=== PATIENT | female | born 1990 | race Asian ===

== ENCOUNTER 2018-09-17 05:20 | Emergency (ER) | payer BC, OTHER ==
[~2018-09-17] VITALS: Ht 152.4 cm; Wt 49.8 kg
[~2018-09-17 05:20] MED LIST: FERR325C PO; Ibuprofen PO; PREN-39 PO
[2018-09-17 05:26] VITALS: Ht 152.4 cm; Wt 49.8 kg
--- NOTE | 2018-09-17 06:02 | ERD ---
ER Documentation Chief Complaint Chief Complaint right abdominal pain radiating to right leg since 0230am HPI 28-year-old female, presents to the emergency department, complaining of acute onset of right lower quadrant abdominal pain, radiating to the right lower extremity, the pain started approximately 3 hours prior to arrival. Otherwise, the patient denies fever, no chills, no diarrhea or constipation, no urinary symptoms. ROS All systems reviewed and are negative except as per history of present illness. Medications Home Meds Active Scripts Ibuprofen* (Motrin*) 600 Mg Tab, 600 MG PO Q6H PRN for PAIN AND OR ELEVATED TEMP, #30 TAB Prov:OMKAR RAMSAY MD 09/17/18 [Ibuprofen] 200 MG TAB No Conflict Check, 200 MG PO Q6H PRN for PAIN OR TEMP ABOVE 38C, TAB Prov:ALICIA ABDALLA 08/18/14 Reported Medications Vits W-Ca,Fe,Fa(<1MG) ( Vitamins) 1 Tab Tablet, 1 TAB PO DAILY 08/15/14 Ferrous Sulfate (Iron) 325 Mg Capsr, 325 MG PO DAILY, #1 08/15/14 Allergies Allergies: Coded Allergies: No Known Drug Allergies (Verified Allergy, Unknown, 09/17/18) Uncoded Allergies: NKDA (Allergy, Unknown, 08/15/14) PMhx/Soc Medical and Surgical Hx: pt denies Medical Hx, pt denies Surgical Hx Hx Alcohol Use: No Hx Substance Use: No Hx Tobacco Use: No Smoking Status: Never smoker FmHx Family History: No diabetes, No coronary disease Physical Exam Vitals Vital Signs Date Temp Pulse Resp B/P (MAP) Pulse Ox O2 O2 Flow FiO2 Time Delivery Rate 09/17/18 98.2 78 18 123/79 98 Room Air 08:14 (94) 09/17/18 99.0 86 18 115/79 98 05:26 (91) Physical Exam Const: Mild distress due to pain Head: Atraumatic Eyes: Normal Conjunctiva ENT: Normal External Ears, Nose and Mouth. Neck: Full range of motion. No meningismus. Resp: Clear to auscultation bilaterally Cardio: Regular rate and rhythm, no murmurs Abd: Soft, tender to deep palpation in the right lower quadrant, questionable peritoneal signs, non distended. Normal bowel sounds Skin: No petechiae or rashes Back: No midline or flank tenderness Ext: No cyanosis, or edema Neur: Awake and alert Psych: Normal Mood and Affect Result Diagram: 09/17/18 0637 09/17/18 0637 Results 24 hrs Laboratory Tests Test 09/17/18 06:37 White Blood Count 7.9 10^3/ul Red Blood Count 5.01 10^6/ul Hemoglobin 14.1 g/dl Hematocrit 42.4 % Mean Corpuscular Volume 84.6 fl Mean Corpuscular Hemoglobin 28.1 pg Mean Corpuscular Hemoglobin Concent 33.3 g/dl Red Cell Distribution Width 12.4 % Platelet Count 334 10^3/UL Mean Platelet Volume 9.6 fl Immature Granulocytes % 0.300 % Neutrophils % 81.6 % Lymphocytes % 14.0 % Monocytes % 3.4 % Eosinophils % 0.3 % Basophils % 0.4 % Nucleated Red Blood Cells % 0.0 /100WBC Immature Granulocytes # 0.020 10^3/ul Neutrophils # 6.5 10^3/ul Lymphocytes # 1.1 10^3/ul Monocytes # 0.3 10^3/ul Eosinophils # 0.0 10^3/ul Basophils # 0.0 10^3/ul Nucleated Red Blood Cells # 0.0 10^3/ul Urine Color RED Urine Clarity SLIGHTLY CLOUDY Urine pH 7.0 Urine Specific [place] 1.005 Urine Ketones NEGATIVE mg/dL Urine Nitrite NEGATIVE mg/dL Urine Bilirubin NEGATIVE mg/dL Urine Urobilinogen NEGATIVE mg/dL Urine Leukocyte Esterase NEGATIVE Ol[place]/ul Urine Microscopic RBC 3 /HPF Urine Microscopic WBC 2 /HPF Urine Squamous Epithelial Cells FEW /HPF Urine Bacteria FEW /HPF Urine Hemoglobin NEGATIVE mg/dL Urine Glucose NEGATIVE mg/dL Urine Total Protein NEGATIVE mg/dl Sodium Level 142 mmol/L Potassium Level 3.9 mmol/L Chloride Level 104 mmol/L Carbon Dioxide Level 24 mmol/L Anion Gap 14 Blood Urea Nitrogen 9 mg/dl Creatinine 0.45 mg/dl Est Glomerular Filtrat Rate mL/min > 60 mL/min Glucose Level 116 mg/dl Calcium Level 10.7 mg/dl Total Bilirubin 0.4 mg/dl Direct Bilirubin 0.00 mg/dl Indirect Bilirubin 0.4 mg/dl Aspartate Amino Transf (AST/SGOT) 20 IU/L Alanine Aminotransferase (ALT/SGPT) 10 IU/L Alkaline Phosphatase 64 IU/L Total Protein 9.1 g/dl Albumin 4.9 g/dl Globulin 4.20 g/dl Albumin/Globulin Ratio 1.16 Lipase 202 U/L Serum HCG, Qualitative NEGATIVE Current Medications Medications Dose Sig/Lizbet Start Time Status Last (Trade) Ordered Route PRN Stop Time Admin Dose Reason Admin Sodium 500 ml @ Q1H STAT 09/17/18 DC Chloride 500 mls/hr IV 06:09 09/17/18 06:35 Patient: SHAYLEE ESPINOZA : 1990 Age: 28 Sex: F MR #: [id number] DOS: 09/17/18 0609 Ordering MD: OMKAR RAMSAY MD Location: [facility] Room/Bed: PROCEDURE: CT Abdomen and Pelvis Without Intravenous Contrast CLINICAL INDICATION: RLQ Abdominal Pain TECHNIQUE: Axial computed tomography images of the abdomen and pelvis without intravenous contrast. Sagittal and coronal reformatted images were created and reviewed. CTDIvol (mGy) = <5.45 mGy>; total DLP (mGy-cm) = <274.28 [address]Gy.cm>. This CT exam was performed using one or more of the following dose reduction techniques: automated exposure control, adjustment of the mA and/or kV according to patient size, and/or use of iterative reconstruction technique. DICOM images are available. COMPARISON: None FINDINGS: LUNG BASES: 3 mm left lower lobe lung nodule, incidental. ABDOMEN: LIVER: Slightly enlarged liver, 18.5 cm. This may predominately be due to a Cesar's lobe, however. No focal hepatic lesion is seen. GALLBLADDER AND BILE DUCTS: Unremarkable No calcified stones. No ductal dilation. PANCREAS: Unremarkable No ductal dilation. SPLEEN: Unremarkable No splenomegaly. ADRENALS: Unremarkable No mass. KIDNEYS AND URETERS: No hydronephrosis. No stones are seen in the kidneys, ureters, or urinary bladder. STOMACH AND BOWEL: Moderate stool burden. No evidence for small bowel obstruction, free air, or abscess. PELVIS: APPENDIX: Normal appendix. BLADDER: Unremarkable No stones. REPRODUCTIVE: Unremarkable. ABDOMEN and PELVIS: INTRAPERITONEAL SPACE: Unremarkable uterus. Possible bilateral ovarian follicles. There may be trace free fluid adjacent to the right ovary. BONES/JOINTS: No bony abnormality is seen. SOFT TISSUES: Unremarkable VASCULATURE: Unremarkable No abdominal aortic aneurysm. LYMPH NODES: Unremarkable No enlarged lymph nodes. OTHER FINDINGS: IMPRESSION: 1. Normal appendix. 2. Unremarkable uterus. Possible bilateral ovarian follicles. There may be trace free fluid adjacent to the right ovary. 3. Moderate stool burden. No evidence for small bowel obstruction, free air, or abscess. Procedures/MDM Vital signs stable. Differential diagnosis include but not limited to: UTI, colitis, gastroenteritis, kidney stones, irritable bowel syndrome, inflammatory bowel syndrome, malabsorption syndrome, cholelithiasis, food intolerance, medication side effect, pancreatitis, diverticulitis, bowel obstruction. Physical examination and clinical presentation consistent most likely with abdominal pain, no evidence of acute abdomen. During the ED course the patient remained stable, no new complaints. The patient refused IV fluids or pain medication in the emergency department. Results and clinical impression discussed with the patient who agrees with management. The patient is stable to be treated outpatient and will be discharged home; some side effects of prescribed medications (headache, rash, nausea, vomiting, diarrhea, drowsiness, habituation, bleeding, hypertension, interactions with other medications) were reviewed. The patient was informed that the evaluation in the emergency department has been done to rule out an acute emergency, therefore, chronic conditions like malignancy or other diseases have not been evaluated; therefore, the patient was instructed to follow up with the primary care provider in the next 48h. If symptoms persist, worsen or new symptoms develop, then patient should return to the ED immediately. Instructions explained and given directly by me to the patient with acknowledgment and demonstrated understanding. Disclaimer: Inadvertent spelling and grammatical errors are likely due to EHR/dictation software use and do not reflect on the overall quality of patient care. Also, please note that the electronic time recorded on this note does not necessarily reflect the actual time of the patient encounter. Departure Diagnosis: Primary Impression: Abdominal pain Condition: Stable Additional Instructions: Thank you very much for allowing us to participate in your care. Your health and safety is our top priority at [facility]. The evaluation in the emergency department has been done to rule out an acute emergency, therefore, chronic conditions like malignancy or other diseases have not been evaluated; therefore, you need to follow up with a primary care provider in the next 48h. If symptoms persist, worsen or new symptoms develop, then patient should return to the ED immediately. Call your primary care doctor TOMORROW for an appointment during the next 2-4 days and bring all the information provided. Have prescriptions filled and follow precisely the directions on the label. If the symptoms get worse and your provider is unavailable, return to the [facility] immediately. OMKAR RAMSAY MD Sep 17, 2018 06:02
[2018-09-17] MEDS ORDERED: SOD CHLORIDE 0.9% 500 ML IV STA (06:09)
[2018-09-17] MEDS ORDERED: IBUP-1542 PO (08:02)
[2018-09-17 08:14] VITALS: BP 123/79; PULSE 78; RESP 18
== END 2018-09-17 08:14 | disposition home or self-care (01) ==
LOC: FTE 05:20
DX: R10.31 Right lower quadrant pain (principal)
CPT/HCPCS: 36415; 74176; 80053; 81001; 83690; 84703; 85025; 99284; J7040; 81003